=== PATIENT | female | born 1965 | race Caucasian/White ===

== ENCOUNTER 2025-04-23 08:59 | Emergency (ER) | payer MEDICAID ==
[~2025-04-23] VITALS: Ht 147.3 cm; Wt 69.0 kg
[2025-04-23 09:07] VITALS: O2SAT 99
[2025-04-23 09:30] LABS: BASOPHILS % 0.4 % (0.0-2.0); EOSINOPHILS % 2.3 % (0.0-5.0); HEMATOCRIT. 39.5 % (36.0-48.0); HEMOGLOBIN. 13.6 g/dL (12.0-16.0); LYMPHOCYTES % 35.2 % (20.0-50.0); MEAN PLATELET VOLUME 7.7 fl (7.4-10.4); MONOCYTES % 5.6 % (2.0-8.0); NEUTROPHILS % 56.5 % (40.0-76.0); PLATELET 176 x1000/uL (130-400); RED BLOOD CELL COUNT 4.33 mill/uL (4.2-5.4); RED CELL DISTRIBUTION WIDTH 13.0 % (11.6-14.6)
[2025-04-23 09:45] LABS: HCG SCREEN NEGATIVE
[2025-04-23] MEDS: VISCOUS LIDOCAINE 2% 15 ML UDC MM ONE (09:55)
[2025-04-23] MEDS: MAGNESIUM/ALUMINUM HYDROXIDE/SIMETHICONE 30ML UDC PO ONE (09:57)
[2025-04-23] MEDS: ONDANSETRON 4MG ODT PO ONE (09:57)
[2025-04-23] MEDS: FAMOTIDINE 20MG TABLET PO ONE (09:57)
[2025-04-23 10:00] LABS: CREATININE 0.6 mg/dL (0.6-1.0); UREA NITROGEN BLOOD 8 mg/dL (9-23)
[2025-04-23 10:17] LABS: ASPARTATE AMINOTRANSFERASE 133 IU/L (<34); BILIRUBIN DIRECT 0.1 mg/dL (<=3.0); BILIRUBIN TOTAL 0.5 mg/dL (0.1-1.0); PROTEIN TOTAL 7.2 g/dL (6.0-8.3); TROPONIN I HIGH SENSITIVITY < 4 ng/L (3.0-34)
[2025-04-23 10:26] LABS: CLARITY URINE CLEAR (CLEAR); COLOR URINE YELLOW (YELLOW); GLUCOSE URINE 1+ (NEGATIVE); KETONES URINE NEGATIVE (NEGATIVE); LEUKOCYTE ESTERASE URINE 3+ (NEGATIVE); NITRITE URINE NEGATIVE (NEGATIVE); OCCULT BLOOD URINE NEGATIVE (NEGATIVE); PH URINE 6.5 (4.5-8.0); PROTEIN URINE NEGATIVE (NEGATIVE); SPECIFIC GRAVITY URINE 1.013 (1.005-1.030); UROBILINOGEN URINE 0.2 E.U./dL (0.2-1.0)
[2025-04-23 10:37] LABS: SQUAMOUS EPITHELIAL CELL URINE 3+ /lpf (RARE/1+)
[2025-04-23 10:38] LABS: RBC URINE 0-2 /hpf (0-2)
[2025-04-23 10:39] LABS: BACTERIA URINE 2+
[2025-04-23 11:40] LABS: TROPONIN I HIGH SENSITIVITY < 4 ng/L (3.0-34)
[2025-04-23] MEDS ORDERED: CEFP200T13 MT (12:41)
[2025-04-23 12:50] VITALS: BP 159/71; PULSE 71; RESP 16; TEMP 36.7; O2SAT 99
== END 2025-04-23 12:55 | disposition home or self-care (01) ==
LOC: ER 08:59
DX: N39.0 Urinary tract infection, site not specified (principal); I10 Essential (primary) hypertension
CPT/HCPCS: 99284; 76700; 80076; 80048; 81003; 84703; 83690; 85025; 87086; 84484; 36415; 93005; Q0162